=== PATIENT | male | born 1975 | race Caucasian/White ===

== ENCOUNTER 2022-03-20 10:39 | Outpatient (CLI) | payer BC, SELFPAY ==
--- NOTE | 2022-03-20 | ECG_ITS ---
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 Interpretive Statements NAME OF STUDY: TREADMILL STRESS TEST INDICATION: Chest Pain Baseline blood pressure of 137/80 mm Hg, heart rate of 92 beats per minute and oxygen saturation of 98%. EKG showed normal sinus rhythm, normal axis with nonspecific T wave changes in lead III. ??? The patient exercised for 8 minutes 59 seconds on a standard Arya protocol. Patient attained a maximum heart rate of 156 beats per minute(88% of the maximum predicted heart rate) with a blood pressure at the peak exercise of 178/101 mm Hg and oxygen saturation 99%. The EKG at the peak exercise revealed sinus tachycardia half to 1 mm horizontal to downsloping ST depression in leads 2, 3, aVF V5 and V6. Patient did not have any significant arrhythmis with the exercise. Patient developed right sided 6/10 chest pain in stage III of exercise that resolved spontaneously in recovery. During the recovery phase, there were no new changes. ??? Blood pressure at the end of the recovery phase was 165/95 mm Hg with a heart rate of 88 beats per minute and oxygen saturation 98%. ??? CONCLUSION: 1. Positive EKG response to treadmill exercise. Half to 1 mm horizontal to downsloping ST depression in leads 2, 3, aVF V5 and V6 at peak exercise. 2. Patient developed chest pain during exercise. No exercise-induced cardiac arrhythmia 3. Excellent exercise tolerance, attained a maximum of 10.2 METs. Maximum VO2 of 35.7 mL/kg/min. 4. Baseline normal blood pressure with normal response to exercise. Electronically Signed On 03-21-2022 13:10:40 CDT by Emelia Alberts M.D. [email or web address]
[2022-03-20 10:54] VITALS: BMI 35.2
[2022-03-20 11:26] VITALS: BP 165/95; PULSE 88
== END 2022-03-20 10:40 | disposition home or self-care (01) ==
LOC: CDL 10:46
PROVIDERS: PCP Registered Nurse; Visit Provider Registered Nurse
DX: R07.9 Chest pain, unspecified (principal); E11.65 Type 2 diabetes mellitus with hyperglycemia
CPT/HCPCS: 93017

== ENCOUNTER 2022-06-09 07:05 | Outpatient (CLI) | payer BC, SELFPAY ==
--- NOTE | 2022-06-09 07:15 | USCV_ITS ---
Yair Fernandes Age: 47 Gender: M : 1975 Exam Date: 06/09/2022 07:16 Ordering Phys: Shanice Escobedo MD ([email or web address]) Technologist: VESNA [place] [facility] [place]: Abnormal stress test BP: 146 / 90 HR: 64 Rhythm: Sinus Technical Quality: Adequate MEASUREMENTS (Male / Female) Normal Values 2D ECHO LV Diastolic Diameter PLAX 4.9 cm 4.2 - 5.9 / 3.9 - 5.3 cm LV Systolic Diameter PLAX 3.7 cm IVS Diastolic Thickness 0.6 cm 0.6 - 1.0 / 0.6 - 0.9 cm IVS Systolic Thickness 1.5 cm LVPW Diastolic Thickness 0.8 cm 0.6 - 1.0 / 0.6 - 0.9 cm LVPW Systolic Thickness 1.1 cm LVOT Diameter 2.3 cm LV Ejection Fraction 2D Teich 46.9 % LV Ejection Fraction MOD 2C 51.5 % LV Ejection Fraction 2C AL 51.8 % LA Diameter 3.4 cm IVC Diameter 2.0 cm M-MODE Aortic Annulus Diameter 3.0 cm LA Ao Ratio MM 1.3 MV E Point Septal Separation 0.6 cm DOPPLER AV Peak Velocity 122.0 cm/s LVOT Peak Velocity 91.0 cm/s AV Area Cont Eq vti 2.8 cm squared AV Area Cont Eq pk 3.0 cm squared MV Peak Velocity 78.0 cm/s MV Area PHT 5.0 cm squared Mitral E to A Ratio 0.9 MV E' Velocity 38.5 cm/s Mitral E to MV E' Ratio 9.0 Mitral E to LV E' Lateral Ratio 8.8 Mitral E to LV E' Septal Ratio 9.4 TR Peak Velocity 233.0 cm/s TR Peak Gradient 21.7 mmHg TV Peak E Velocity 78.0 cm/s PV Peak Velocity 91.0 cm/s FINDINGS Left Ventricle Normal left ventricular size and systolic function, EF 55 %. No regional wall motion abnormalities. Right Ventricle The right ventricle is normal in size and function. Right Atrium The right atrium is normal in size. Left Atrium The left atrium is normal in size. Mitral Valve Trace mitral valve regurgitation. Aortic Valve Structurally normal aortic valve without significant sclerosis or stenosis. There is no aortic regurgitation. Tricuspid Valve Trace to mild tricuspid valve regurgitation. Pulmonic Valve No gross abnormalities noted Pericardium No pericardial effusion. Aorta Normal ascending aorta dimension. IVC Normal IVC dimension with >50% respiratory change of the inferior vena cava. CONCLUSIONS Normal left ventricular size and systolic function, EF 55 %. No regional wall motion abnormalities. Normal cardiac chamber sizes. Trace mitral valve regurgitation. Trace to mild tricuspid valve regurgitation. Estimated pulmonary artery peak systolic pressure 22 mmHg There is no pericardial effusion. There are no intracardiac masses. No similar previous studies are available for comparison Dr Shanice Escobedo MD FACC (Electronically Signed) Final Date: 09 June 2022 10:12 S
== END 2022-06-09 07:06 | disposition home or self-care (01) ==
LOC: RAD 07:06
PROVIDERS: PCP Registered Nurse; Visit Provider Internal Medicine Cardiovascular Disease
DX: R06.09 Other forms of dyspnea (principal); I08.1 Rheumatic disorders of both mitral and tricuspid valves
CPT/HCPCS: 93306

== ENCOUNTER 2022-06-29 12:37 | Outpatient (CLI) | payer BC, SELFPAY ==
[2022-06-29 13:12] LABS: Basophils # 0.1 10^3/uL (0.0-0.1); Basophils % 0.7 %; Eosinophils # 0.2 10^3/uL (0.0-0.8); Eosinophils % 2.4 %; Hematocrit 46.5 % (42.0-52.0); Lymphocytes # 1.8 10^3/uL (0.8-4.8); Lymphocytes % 25.9 %; Mean Corpuscular HGB Conc 34.4 g/dL (30.0-36.0); Mean Corpuscular Hemoglobin 28.8 pg (28.0-34.0); Mean Corpuscular Volume 83.8 fl (80-94); Mean Platelet Volume 10.8 fL (7.4-10.4); Monocytes # 0.5 10^3/uL (0.2-0.9); Neutrophils # 4.22 10^3/uL (1.8-7.7); Neutrophils % 62.6 %; Nucleated Red Blood Cells % 0 %; Platelet Count 219 10^3/cmm (130-400); Red Blood Count 5.55 10^6/uL (4.1-5.3); Red Cell Distribution Width 12.1 % (12.1-15.1); White Blood Count 6.8 10^3/uL (4.0-10.0)
[2022-06-29 13:22] LABS: INR 0.89 (0.83-1.21); Prothrombin Time (Patient) 12.3 Seconds (12.0-15.1)
[2022-06-29 13:28] LABS: Blood Urea Nitrogen 14 mg/dL (6-20); Calcium 9.5 mg/dL (8.5-10.5); Carbon Dioxide 27 mmol/L (22-29); Chloride 102 mmol/L (98-107); Glomerular Filtration Rate 91.3 mL/min (90-130); Glucose 289 mg/dL (65-115); Osmolality Calculated 299 mOsm/kg (285-295); Sodium 139 mmol/L (136-145)
== END 2022-06-29 12:38 | disposition home or self-care (01) ==
LOC: LAB 12:40
PROVIDERS: PCP Registered Nurse; Visit Provider Internal Medicine Cardiovascular Disease
DX: R94.39 Abnormal result of other cardiovascular function study (principal)
CPT/HCPCS: 36415; 80048; 85025; 85610; 86850; 86900

== ENCOUNTER → 2025-02-19 11:03 | Outpatient (BNVA) | payer BC, SELFPAY | PROVIDERS: PCP Registered Nurse | DX: J02.9 Acute pharyngitis, unspecified (principal) | CPT/HCPCS: 87071; 87880 ==